=== PATIENT | male | born 1940 | race Caucasian/White ===

== ENCOUNTER 2016-04-05 14:58 | Inpatient (IN) ==
[2016-04-05] MEDS ORDERED: *HR* HYDROmorphone (PF) 1 MG/ML SYRINGE IV ONE (15:43)
[2016-04-05] MEDS ORDERED: Ondansetron 4 MG/2 ML VIAL IVP ONE ×2 (15:43→18:43)
--- NOTE | 2016-04-05 15:49 | Emergency Department Note ---
Disposition Clinical Impression: Intractable low back pain, Radiculopathy of lumbar region Spinal stenosis Qualifiers: Spinal region: lumbar Qualified Code(s): M48.06 - Spinal stenosis, lumbar region Disposition: Admitted As Inpatient Condition: Good Referrals: Colten Costello DO [Primary Care Provider] - Forms: ED Satisfaction Letter Back Pain HPI - General Chief Complaint: ED Back Pain/Injury Stated Complaint: back/leg pain s/p fall yesterday Time Seen by Provider: 04/05/16 15:24 Source: patient Limitations: no limitations Nursing Notes Reviewed: Yes Vital Signs Reviewed: Yes - History of Present Illness HPI Narrative: Is a 75-year-old male was here for low back pain and radicular symptoms on the left. He fell about 10-12 days ago was seen in the ER a CT scan that was negative for compression fracture he follow up with his PCP today and some abdominal for further evaluation. The patient had severe pain at home he basically has been bedridden normally is very active and performs a lot of activities outdoors. He is difficulty walking due to pain is been using a walker. Most movement causes low back pain with radiation to the left groin Pt Subjective Complaint: back pain (10) Duration: constant Similar Symptoms Previously: Yes Location: lumbar spine Pain Severity: severe Quality: stabbing Radiation: left leg Improves with: immobilization Worsens with: movement Associated symptoms: Reports: denies other symptoms - Related Data Previous Rx's Medication Instructions Recorded Hydrocodone/Acetaminophen [Hitchins 1 tab PO Q4H PRN #15 tab 03/27/16 5-325 Tablet] Naproxen [Naprosyn] 500 mg PO BID #10 tablet 03/27/16 Orphenadrine [Norflex] 100 mg PO BID #14 tablet.er 03/27/16 PredniSONE 60 mg PO DAILY #15 tablet 03/27/16 Allergies Allergy/AdvReac Type Severity Reaction Status Date / Time No Known Allergies Allergy Verified 03/27/16 11:29 All systems ED: reviewed and negative except as stated. Constitutional: Denies: fever, chills Gastrointestinal: Denies: abdominal pain, nausea, vomiting Past Medical History - Past Medical History Medical history: Reports: hyperlipidemia Surgical history: Reports: cancer surgery, herniorrhaphy, other Psychiatric history: Reports: no psych history - Social History Smoking Status: Never smoker Smokeless Tobacco Status: No Alcohol use: Reports: none Drug use: Reports: none Physical Exam - General Limitations: no limitations General appearance: alert - Head Head exam: atraumatic, normocephalic, normal inspection - Eye Eye exam: Present: normal appearance, PERRL, EOMI - Expanded Eye Exam Pupils: Left: reactive - ENT ENT exam: normal exam, normal oropharynx, mucous membranes moist - Expanded ENT Exam External ear exam: Present: normal external inspection Mouth exam: Present: normal external inspection Teeth exam: Present: normal inspection Throat exam: Present: normal inspection - Neck Neck exam: Present: normal inspection, full ROM, trachea midline - Chest Chest inspection: Present: normal inspection, symmetric chest wall rise - Respiratory Respiratory exam: Present: normal lung sounds bilaterally - Cardiovascular Cardiovascular exam: Present: regular rate, normal rhythm, normal heart sounds - Abdominal Exam Abdominal exam: Present: soft, Non-Tender. Absent: tenderness, distention, guarding, rebound, rigidity - Extremities Exam Extremities exam: Present: normal inspection, full ROM. Absent: tenderness, pedal edema - Expanded Upper Extremity Exam Shoulder exam: Present: normal inspection, full ROM Arm exam: Present: normal inspection, full ROM Elbow exam: Present: normal inspection, full ROM Forearm/Wrist exam: Present: normal inspection, full ROM Hand exam: Present: normal inspection, full ROM Vascular exam: Normal: capillary refill, radial pulse - Expanded Lower Extremity Exam Hip/Pelvis exam: Present: normal inspection, full ROM Upper leg exam: Present: normal inspection, full ROM Knee exam: Present: normal inspection, full ROM Lower leg exam: Present: normal inspection, full ROM Ankle exam: Present: normal inspection, full ROM Foot/toe exam: Present: normal inspection, full ROM Neurovascular/Tendon exam: Absent: motor deficit, sensory deficit, tendon deficit - Back Exam Back exam: Present: normal inspection, tenderness (Mild diffuse lower lumbar tenderness patient has pain with flexion and extension of the spine and any type of movement. ) - Neurological Exam Neurological exam: Present: alert, oriented X3 - Expanded Neurological Exam Patient oriented to: Present: person, place, time Coma Scale Eye Opening: Spontaneous Coma Scale Motor Response: Obeys Commands Coma Scale Verbal Response: Oriented Coma Scale Total: 15 - Psychiatric Psychiatric exam: Present: normal affect, normal mood - Skin Skin exam: Present: warm, dry, intact, normal color Course Vital Signs Temperature 98.0 F 04/05/16 15:17 Pulse Rate 89 04/05/16 15:17 Respiratory Rate 24 04/05/16 15:17 Blood Pressure 130/81 04/05/16 15:17 O2 Sat by Pulse Oximetry 97 04/05/16 15:17 Temperature 98.0 F 04/05/16 15:17 Pulse Rate 81 04/05/16 17:55 Respiratory Rate 16 04/05/16 17:55 Blood Pressure 158/106 04/05/16 17:55 O2 Sat by Pulse Oximetry 97 04/05/16 17:55 Oxygen Delivery Oxygen Delivery Nasal Cannula Back Pain/Injury - MDM Narrative Medical decision making narrative: I consult Dr. Lai he will see the patient in the morning to decide on further management plans - Differential Diagnosis Differential Diagnosis: Likely: lumbar radiculopathy, strain of lumbar region, thoracic back pain - Lab Data Result diagrams: 04/05/16 15:56 04/05/16 15:56 Lab Results 04/05/16 04/05/16 04/05/16 Range/Units 15:56 15:56 17:45 WBC 10.5 (4.3-11.1) K/mcL RBC 6.17 H (4.19-5.50) M/mcL Hgb 18.5 H (12.9-16.9) g/dL Hct 52.8 H (37.5-50.1) % MCV 85.6 (83.0-100.0) fL MCH 30.0 (28.0-33.3) pg MCHC 35.0 (31.6-35.5) g/dL RDW 13.0 (11.5-14.5) % Plt Count 207 (140-400) K/mcL MPV 9.2 L (9.4-12.4) fL Immature Gran % 0.4 (0-4) % Seg Neutrophils % 72.1 % Lymphocytes % 16.9 % Monocytes % 7.7 % Eosinophils % 2.3 % Basophils % 0.6 % Neutrophils # 7.6 (1.6-8.9) K/mcL Lymphocytes # 1.8 (0.6-4.6) K/mcL Monocytes # 0.8 (0.0-1.3) K/mcL Eosinophils # 0.2 (0.0-0.6) K/mcL Basophils # 0.1 (0.0-0.2) K/mcL Sodium 139 (136-145) mEq/L Potassium 4.0 (3.5-4.5) mEq/L Chloride 105 (98-109) mEq/L Carbon Dioxide 22 (19-29) mEq/L BUN 16 (8-26) mg/dL Creatinine 1.12 (0.72-1.25) mg/dL Est GFR ( Amer) > 60 (> 60) Est GFR (Non-Af Amer) > 60 (> 60) BUN/Creatinine Ratio 14 (6-26) Glucose 97 (70-99) mg/dL Calculated Osmolality 289 (280-300) Calcium 9.5 (8.6-10.8) mg/dL Total Bilirubin 1.8 H (0.2-1.2) mg/dL Direct Bilirubin 0.5 (0.0-0.5) mg/dL Indirect Bilirubin 1.3 H (0.0-1.2) mg/dL AST 23 (5-34) Units/L ALT 43 (0-55) Units/L Alkaline Phosphatase 80 (38-126) Units/L Serum Total Protein 7.7 (6.0-8.3) g/dL Albumin 4.0 (3.5-5.0) g/dL Globulin 3.7 H (2.4-3.5) g/dL Albumin/Globulin Ratio 1.1 (1.1-2.2) Urine Color Yellow (Yellow) Urine Clarity Clear (Clear) Urine pH 7.0 (5.0-8.0) pH Units Ur Specific [place] 1.010 (1.010-1.025) Urine Protein Negative (Neg-Trace) mg/dL Urine Glucose (UA) Normal (Normal) mg/dL Urine Ketones Negative (Negative) mg/dL Urine Blood Negative (Negative) Urine Nitrite Negative (Negative) Urine Bilirubin Negative (Negative) Urine Urobilinogen Normal (Normal) mg/dL Ur Leukocyte Esterase Negative (Negative) Ur Culture Indicated? NO (NO)
[2016-04-05 16:35] LABS: Basophils # 0.1 K/mcL (0.0-0.2); Basophils % 0.6 %; Eosinophils # 0.2 K/mcL (0.0-0.6); Eosinophils % 2.3 %; Hematocrit 52.8 % (37.5-50.1); Hemoglobin 18.5 g/dL (12.9-16.9); Immature Granulocytes % 0.4 % (0-4); Lymphocytes # 1.8 K/mcL (0.6-4.6); Lymphocytes % 16.9 %; Mean Corpuscular Volume 85.6 fL (83.0-100.0); Mean Platelet Volume 9.2 fL (9.4-12.4); Monocytes # 0.8 K/mcL (0.0-1.3); Monocytes % 7.7 %; Neutrophils # 7.6 K/mcL (1.6-8.9); Platelet Count 207 K/mcL (140-400); Red Blood Count 6.17 M/mcL (4.19-5.50); Segmented Neutrophils % 72.1 %
[2016-04-05 16:54] LABS: Alanine Aminotransferase 43 Units/L (0-55); Albumin/Globulin Ratio 1.1 (1.1-2.2); Alkaline Phosphatase 80 Units/L (38-126); Aspartate Amino Transferase 23 Units/L (5-34); BUN/Creatinine Ratio 14 (6-26); Bilirubin,Direct 0.5 mg/dL (0.0-0.5); Bilirubin,Indirect 1.3 mg/dL (0.0-1.2); Bilirubin,Total 1.8 mg/dL (0.2-1.2); Blood Urea Nitrogen 16 mg/dL (8-26); Calcium 9.5 mg/dL (8.6-10.8); Carbon Dioxide 22 mEq/L (19-29); Chloride 105 mEq/L (98-109); Globulin 3.7 g/dL (2.4-3.5); Glucose 97 mg/dL (70-99); Osmolality,Calculated 289 (280-300); Sodium 139 mEq/L (136-145); Total Protein 7.7 g/dL (6.0-8.3); eGFR For African Americans > 60 (> 60); eGFR For Non-African Americans > 60 (> 60)
[2016-04-05 18:01] LABS: Bilirubin,Urine Negative (Negative); Blood,Urine Negative (Negative); Clarity,Urine Clear (Clear); Color,Urine Yellow (Yellow); Glucose,Urine (UA) Normal (Normal); Ketones,Urine Negative (Negative); Leukocyte Esterase,Urine Negative (Negative); Nitrite,Urine Negative (Negative); Protein,Urine Negative (Neg-Trace); Urobilinogen,Urine Normal (Normal)
[2016-04-05] MEDS ORDERED: Ketorolac 30 MG/ML VIAL IVP ONE (18:42)
[2016-04-05] MEDS ORDERED: *HR* HYDROmorphone (PF) 1 MG/ML SYRINGE IVP ONE (18:43)
--- NOTE | 2016-04-05 20:12 | Internal Med History&Physical ---
<Marshall Damon - Last Filed: 04/06/16 00:05> Date of Encounter: 04/06/16 Time of Encounter: 20:10 Assessment and Plan (1) Intractable low back pain Current visit: Yes Status: Acute Acute on chronic LBP with new onset radiculopathy in L leg x 1.5 weeks ago s/p back strain while doing housework. No loss of bowel or bladder control. Lumbar MRI showed severe spinal stenosis L2-L3, L3-L4. Severe left neural forminal stenosis at L5-S1. Pain improved with Dilaudid, will continue to manage. Consider steroid injection. Dr. Lai, ortho, consulted. (2) Radiculopathy of lumbar region Current visit: Yes Status: Acute See plan above. (3) Spinal stenosis Current visit: Yes Status: Acute See plan above. Qualifiers: Spinal region: lumbar Qualified Code(s): M48.06 - Spinal stenosis, lumbar region (4) Elevated blood pressure reading Current visit: Yes Status: Acute No history of HTN, patient states they have been running high since the pain started. Plan to manage acute pain. Monitor BP, will start prn hydralazine. (5) HLD (hyperlipidemia) Current visit: Yes Status: Chronic Continue home medications. Qualifiers: Hyperlipidemia type: mixed hyperlipidemia Qualified Code(s): E78.2 - Mixed hyperlipidemia (6) Gilbert's syndrome Current visit: Yes Status: Chronic Mildly elevated total Bilirubin 1.8 and indirect 1.3. (7) Lung fibrosis Current visit: Yes Status: Chronic Past history of abestosis exposure, associated fibrosis, emphysema. No tobacco history. Patient on supplemental oxygen at home, baseline of 2 L, up to 4L with activity. Start alisha. Internal Medicine - H&P: HPI Chief complaint: LBP Admitted From: Emergency Dept Plans for Post Hospital Care: Transfer Inp Rehab Fac History of present illness: Mr. Cespedes is a 75 year old male that presented to the ED for LBP for 1.5 weeks with radiating pain through low back, abdomen, L groin, and down his L leg. Patient notes history of "slipped disc" in 1979 that involved treatment with traction and a 1 week hospital stay in [place]. Since then he states his back may get irritated from time to time, but does not inhibit his daily activities and nothing comparable to pain now. Patient states at its worst, pain is a 10/10 in severity Patient states approx 10 days ago he was throwing a bucket of lloyd into the garden and felt his give out. Since this time patient states he has had sharp shooting pain in his back to his left ankle. Patient notes the pain is so severe it is affecting his ability to walk, so he has been using a walker recently, however, despite the use of the walker he states that he fell yesterday when his L leg gave out on him. Patient notes numbness in the left leg compared to the right and that the leg is painful to touch, worse over the tibia. Patient also notes recent elevated BP since the start of the back and leg pain. Patient denies any syncope, dizziness, chest pain, abdominal pain , or swelling. Past Med Surg Social Fam HX - Past Medical History Medical history: hyperlipidemia Psychiatric history: no psych history - Past Surgical History Surgical History: cancer surgery, herniorrhaphy, other - Social History Smoking Status: Never smoker Smokeless Tobacco Status: No Alcohol use: none Drug use: none - Family History Brother Hx Family Cancer: Yes (skin CA) Mother Hx Family Cancer: Yes (gastric) Internal Medicine - H&P: Meds Ascorbate Calcium [Vitamin C] 500 mg PO DAILY 04/05/16 [History] Atorvastatin [Lipitor] 10 mg PO HS 04/05/16 [History] Cetirizine HCl [All Day Allergy] 10 mg PO DAILY 04/05/16 [History] Cholecalciferol (D-3) [Vitamin D] 5,000 unit PO DAILY 04/05/16 [History] Cyanocobalamin (Vitamin B-12) [Vitamin B12] 1,000 mcg PO DAILY 04/05/16 [History ] [place]-3S/Dha/Epa/Fish Oil [Fish Oil 1,200 mg Softgel] 1 each PO DAILY 04/05/16 [ History] Polyethylene Glycol 3350 [MiraLAX] 17 gm PO DAILY 04/05/16 [History] Tramadol HCl [Ultram] 50 mg PO TID PRN 04/05/16 [History] Allergies No Known Allergies Allergy (Verified 03/27/16 11:29) All Systems PM: A 10-system review of systems was performed and is negative for pertinent findings except as documented above in the HPI. - Constitutional Constitutional: falls, weakness, no fatigue - EENT Eyes: no loss of vision - Cardiovascular Cardiovascular ROS IM: dyspnea, no chest pain, no syncope - Respiratory Respiratory: dyspnea - Gastrointestinal Gastrointestinal: no abdominal pain - Genitourinary Genitourinary ROS male: other (L groin pain) - Musculoskeletal Musculoskeletal ROS IM: back pain, limited range of motion, numbness, tingling - Integumentary Integumentary IM: no erythema - Neurological Neurological ROS: numbness, radicular pain - Hematologic/Lymphatic Hematologic/Lymphatic: no easy bruising - Constitutional Vitals: Temp Pulse Resp BP Pulse Ox 98.0 F 81 16 158/109 97 04/05/16 15:17 04/05/16 17:55 04/05/16 19:08 04/05/16 19:08 04/05/16 17:55 General appearance: Present: cooperative, mild distress, A&O X 3, pleasant, answers questions appropriately - Head Head exam: Present: atraumatic, normocephalic - Eye Eye exam: Present: EOMI, conjuntiva pink, sclera anicteric Pupils: Present: miosis - Neck Neck exam general surgery: Present: supple, trachea midline - Respiratory Respiratory exam: Present: CTAB. Absent: accessory muscle use, rales, rhonchi, wheezes - Cardiovascular Cardiovascular exam: Present: RRR, +S1, +S2. Absent: diastolic murmur, gallop, rubs, systolic murmur - GI/Abdominal GI/Abdominal exam: Present: normal bowel sounds, soft, no peritoneal signs. Absent: distended, tenderness - Extremities Exam Extremities exam: Present: tenderness (of left leg, worse over tibia), warm. Absent: cyanotic, pedal edema Additional comments: Patient states pain and numbness in left leg upon palpation. Denies any burning sensation at this time. Patient unable to lift leg off the bed with straight leg raise due to pain. - Neurological Exam Neurological exam: Present: alert, oriented X3, no focal deficits, strengths equal and symetr throughout (UE 5/5 bilaterally, R LE 5/5, unable to ascertain L LE strength due to LBP.). Absent: facial droop, speech deficit - Skin Skin exam: Present: dry, intact Internal Med - H&P Results - Labs CBC & Chem 7: 04/05/16 15:56 04/05/16 15:56 <Mirna Velasquez - Last Filed: 04/06/16 06:03> Date of Encounter: 04/05/16 Time of Encounter: 05:00 Internal Medicine - H&P: HPI History of present illness: Mr. Cespedes is a 75 year old male All Systems PM: A 10-system review of systems was performed and is negative for pertinent findings except as documented above in the HPI. - Constitutional Vitals: Temp Pulse Resp BP Pulse Ox 98.0 F 70 16 143/82 96 04/06/16 04:36 04/06/16 04:36 04/06/16 04:36 04/06/16 04:36 04/06/16 04:36 Internal Med - H&P Results - Labs CBC & Chem 7: 04/05/16 15:56 04/05/16 15:56 - Attending Attestation Patient independently seen and examined with family present at bedside. Pt reports of excruciating pain which has worsened since his fall and not adequately relieved with the current pain medication regimen. He denies any urinary incontinence, no saddle anesthesia reported. Patient is to be evaluated by Dr. Lai in am. Will adjust pain control. Increase Dilaudid to 1mg IV q4h and add Toradol 30mg IV q6h prn. I have discussed the case with the resident physician, and agree with her listed findings, assessment, and plan.
[2016-04-05] MEDS ORDERED: Naloxone 0.4 MG/ML INJ IVP PRN (20:59)
[2016-04-05] MEDS ORDERED: Ondansetron 4 MG/2 ML VIAL IVP PRN (20:59)
[2016-04-05] MEDS ORDERED: *HR* HYDROmorphone (PF) 1 MG/ML SYRINGE IVP PRN (22:00)
[2016-04-06 05:03] LABS: INR 1.1; Prothrombin Time 11.8 Seconds (9.4-12.1)
[2016-04-06 05:06] LABS: Activated Partial Thrombo Time 31.1 Seconds (26.0-36.0)
[2016-04-06] MEDS: *HR* HYDROmorphone (PF) 1 MG/ML SYRINGE IVP PRN ×3 (05:07→21:46)
[2016-04-06] MEDS: *HR* Heparin 5,000 UNIT/ML VIAL SQ SCH ×2 (05:07→17:10)
[2016-04-06] MEDS: Pantoprazole 40 MG VIAL IVP SCH (07:53)
[2016-04-06] MEDS: Ketorolac 30 MG/ML VIAL IVP PRN ×2 (07:53→16:21)
--- NOTE | 2016-04-06 10:00 | Electrocardiograph Report ---
[facility] Test Date: 2016-04-06 Pat Name: Mckinley Cespedes Department: 114 Room: [facility] Gender: M Patient Account Analyst: SYLVESTER : 1940 Requested By: Camelia Christianson Order Number: [id number] Reading MD: Alejandra Gaspar Measurements Intervals [place] Rate: 65 P: 27 FL: 163 QRS: 3 QRSD: 100 T: 46 QT: 411 QTc: 422 Interpretive Statements SINUS RHYTHM Electronically Signed On 04-06-16 09:58:05 EST by Alejandra Gaspar
--- NOTE | 2016-04-06 16:23 | Internal Med Progress Note ---
Date of Encounter: 04/06/16 Time of Encounter: 09:00 - Assessment and plan (1) Spinal stenosis Current Visit: Yes Status: Acute Assessment and plan: We will give pain medication. Spinal surgery is on case and plan for surgery. Patient is at high risk because of his spinal stenosis needs surgical intervention. Qualifiers: Spinal region: lumbar Qualified Code(s): M48.06 - Spinal stenosis, lumbar region (2) Radiculopathy of lumbar region Current Visit: Yes Status: Acute Assessment and plan: Caused by spinal stenosis. Plan for surgery. 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 Mild elevated bilirubin (4) Lung fibrosis Current Visit: Yes Status: Chronic Assessment and plan: Patient has history of abestosis exposure, need home oxygen. We will order chest x-ray. Continue oxygen therapy. (5) DVT prophylaxis Current Visit: Yes Status: Acute Assessment and plan: Heparin and EPCD - Time Spent With Patient Greater than 35 minutes - Subjective Interval history: Patient is a 75-year-old male admitted for low back pain radiated to left leg, L -spine stenosis. Past medical history is significant for hyperlipidemia and chronic lung disease. Patient was seen and examined. He has no shortness of breath, no fever, vitals are stable. Complaint of low back pain and left leg pain. Denies urinary or fecal incontinence. Spinal surgery Dr. Gandhi is on case. Plan for surgery on Saturday. - Constitutional Vitals: Temp Pulse Resp BP Pulse Ox 97.6 F 70 18 144/83 97 04/06/16 10:58 04/06/16 10:58 04/06/16 10:58 04/06/16 10:58 04/06/16 10:58 General appearance: Present: cooperative, mild distress, A&O X 3, pleasant, answers questions appropriately - Head Head exam: Present: atraumatic, normocephalic - Eye Eye exam: Present: PERRL, conjuntiva pink, sclera anicteric Pupils: Present: PERRL - Neck Neck exam general surgery: Present: supple, trachea midline. Absent: lymphadenopathy - Respiratory Respiratory exam: Present: CTAB. Absent: accessory muscle use, rales, rhonchi, wheezes - Cardiovascular Cardiovascular exam: Present: RRR, +S1, +S2. Absent: diastolic murmur, gallop, rubs, systolic murmur - GI/Abdominal GI/Abdominal exam: Present: normal bowel sounds, soft, no peritoneal signs. Absent: distended, tenderness - Extremities Exam Extremities exam: Present: warm, radial pulses palpable and symetrical. Absent : calf tenderness, cyanotic, pedal edema - Neurological Exam Neurological exam: Present: CN II-XII intact, oriented X3, no focal deficits. Absent: pronater drift, facial droop, speech deficit - Skin Skin exam: Present: dry, intact Internal Medicine: Result - Labs CBC & Chem 7: 04/05/16 15:56 04/05/16 15:56 - ABG Interpretation ABG results: PT/INR, D-dimer PT 11.8 Seconds (9.4-12.1) 04/06/16 03:47 Consult Discharge Plan - Plan Referrals: Colten Costello DO [Primary Care Provider] -
[2016-04-07] MEDS: Ketorolac 30 MG/ML VIAL IVP PRN ×4 (02:47→23:44)
[2016-04-07] MEDS: *HR* HYDROmorphone (PF) 1 MG/ML SYRINGE IVP PRN ×3 (06:14→19:44)
[2016-04-07] MEDS: *HR* Heparin 5,000 UNIT/ML VIAL SQ SCH ×2 (06:15→16:28)
[2016-04-07] MEDS: Pantoprazole 40 MG VIAL IVP SCH (08:11)
--- NOTE | 2016-04-07 17:10 | Internal Med Progress Note ---
Date of Encounter: 04/07/16 Time of Encounter: 10:00 - Assessment and plan (1) Spinal stenosis Current Visit: Yes Status: Acute Assessment and plan: We will give pain medication. Spinal surgery is on case and plan for surgery. Patient is at high risk because of his spinal stenosis needs surgical intervention. Qualifiers: Spinal region: lumbar Qualified Code(s): M48.06 - Spinal stenosis, lumbar region (2) Radiculopathy of lumbar region Current Visit: Yes Status: Acute Assessment and plan: Caused by spinal stenosis. Plan for surgery. 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 Mild elevated bilirubin (4) Lung fibrosis Current Visit: Yes Status: Chronic Assessment and plan: Patient has history of abestosis exposure, need home oxygen. Chest x-ray shows no acute changes. Continue oxygen therapy. (5) DVT prophylaxis Current Visit: Yes Status: Acute Assessment and plan: Heparin and EPCD - Time Spent With Patient Greater than 35 minutes - Subjective Interval history: Patient is a 75-year-old male admitted for low back pain radiated to left leg, L -spine stenosis. Past medical history is significant for hyperlipidemia and chronic lung disease. Patient was seen and examined. He has no shortness of breath, no fever, vitals are stable. Complaint of low back pain and left leg pain. Denies urinary or fecal incontinence. Spinal surgery Dr. Gandhi is on case. Plan for surgery on Saturday. - Constitutional Vitals: Temp Pulse Resp BP Pulse Ox 97.9 F 64 16 134/81 98 04/07/16 14:39 04/07/16 14:39 04/07/16 14:39 04/07/16 14:39 04/07/16 14:39 General appearance: Present: cooperative, mild distress, A&O X 3, pleasant, answers questions appropriately - Head Head exam: Present: atraumatic, normocephalic - Eye Eye exam: Present: PERRL, conjuntiva pink, sclera anicteric Pupils: Present: PERRL - Neck Neck exam general surgery: Present: supple, trachea midline. Absent: lymphadenopathy - Respiratory Respiratory exam: Present: CTAB. Absent: accessory muscle use, rales, rhonchi, wheezes - Cardiovascular Cardiovascular exam: Present: RRR, +S1, +S2. Absent: diastolic murmur, gallop, rubs, systolic murmur - GI/Abdominal GI/Abdominal exam: Present: normal bowel sounds, soft, no peritoneal signs. Absent: distended, tenderness - Extremities Exam Extremities exam: Present: warm, radial pulses palpable and symetrical. Absent : calf tenderness, cyanotic, pedal edema - Neurological Exam Neurological exam: Present: CN II-XII intact, oriented X3, no focal deficits. Absent: pronater drift, facial droop, speech deficit - Skin Skin exam: Present: dry, intact Internal Medicine: Result - Labs CBC & Chem 7: 04/05/16 15:56 04/05/16 15:56 - ABG Interpretation ABG results: PT/INR, D-dimer PT 11.8 Seconds (9.4-12.1) 04/06/16 03:47 - Impressions Impressions Chest X-Ray 04/06/16 00:00 IMPRESSION: No acute pulmonary process. D/ / Loi Ortiz MD / Loi Ortiz MD Interpreting Provider: Loi Ortiz MD Consult Discharge Plan - Plan Referrals: Colten Costello DO [Primary Care Provider] -
[2016-04-08] MEDS: *HR* Heparin 5,000 UNIT/ML VIAL SQ SCH ×2 (05:55→16:28)
[2016-04-08] MEDS: *HR* HYDROmorphone (PF) 1 MG/ML SYRINGE IVP PRN ×2 (08:22→14:37)
[2016-04-08] MEDS: Pantoprazole 40 MG VIAL IVP SCH (08:22)
[2016-04-08] MEDS ORDERED: ceFAZolin 2,000 MG in D5% in Water (Mini-Bag+) 100 ML IVPB ONE (15:56)
--- NOTE | 2016-04-08 16:36 | Internal Med Progress Note ---
Date of Encounter: 04/08/16 Time of Encounter: 09:00 - Assessment and plan (1) Spinal stenosis Current Visit: Yes Status: Acute Assessment and plan: We will give pain medication. Spinal surgery is on case and plan for surgery. Qualifiers: Spinal region: lumbar Qualified Code(s): M48.06 - Spinal stenosis, lumbar region (2) Radiculopathy of lumbar region Current Visit: Yes Status: Acute Assessment and plan: Caused by spinal stenosis. Plan for surgery. 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 Mild elevated bilirubin (4) Lung fibrosis Current Visit: Yes Status: Chronic Assessment and plan: Patient has history of abestosis exposure, need home oxygen. Chest x-ray shows no acute changes. Continue oxygen therapy. Closely monitor perioperatively. (5) DVT prophylaxis Current Visit: Yes Status: Acute Assessment and plan: Heparin and EPCD - Time Spent With Patient 25 - 35 minutes - Subjective Interval history: Patient is a 75-year-old male admitted for low back pain radiated to left leg, L -spine stenosis. Past medical history is significant for hyperlipidemia and chronic lung disease. Patient was seen and examined. He has no shortness of breath, no fever, vitals are stable. Complaint of low back pain and left leg pain. Denies urinary or fecal incontinence. Spinal surgery Dr. Gandhi is on case. Plan for surgery on Saturday. Lab, EKG, and CXR reviewed. Pt has chronic lung fibrosis which make him having mild to moderate risk for surgery, need close monitoring perioperatively. Pt has no acute cardiopulmonary condition now. He is medically optimized for surgery. - Constitutional Vitals: Temp Pulse Resp BP Pulse Ox 97.5 F L 63 16 139/52 97 04/08/16 15:09 04/08/16 15:09 04/08/16 15:09 04/08/16 15:09 04/08/16 15:09 General appearance: Present: cooperative, mild distress, A&O X 3, pleasant, answers questions appropriately - Head Head exam: Present: atraumatic, normocephalic - Eye Eye exam: Present: PERRL, conjuntiva pink, sclera anicteric Pupils: Present: PERRL - Neck Neck exam general surgery: Present: supple, trachea midline. Absent: lymphadenopathy - Respiratory Respiratory exam: Present: CTAB. Absent: accessory muscle use, rales, rhonchi, wheezes - Cardiovascular Cardiovascular exam: Present: RRR, +S1, +S2. Absent: diastolic murmur, gallop, rubs, systolic murmur - GI/Abdominal GI/Abdominal exam: Present: normal bowel sounds, soft, no peritoneal signs. Absent: distended, tenderness - Extremities Exam Extremities exam: Present: warm, radial pulses palpable and symetrical. Absent : calf tenderness, cyanotic, pedal edema - Neurological Exam Neurological exam: Present: CN II-XII intact, oriented X3, no focal deficits. Absent: pronater drift, facial droop, speech deficit - Skin Skin exam: Present: dry, intact Internal Medicine: Result - Labs CBC & Chem 7: 04/05/16 15:56 04/05/16 15:56 - ABG Interpretation ABG results: PT/INR, D-dimer PT 11.8 Seconds (9.4-12.1) 04/06/16 03:47 - VTE Documentation of Mechanical Device: Intermittent pneumatic compression device Consult Discharge Plan - Plan Referrals: Colten Costello DO [Primary Care Provider] -
[2016-04-08] MEDS: Ketorolac 30 MG/ML VIAL IVP PRN (20:14)
[2016-04-09] MEDS: Ketorolac 30 MG/ML VIAL IVP PRN (02:21)
[2016-04-09 05:29] LABS: Basophils % 0.4 %; Eosinophils # 0.2 K/mcL (0.0-0.6); Eosinophils % 3.3 %; Hematocrit 45.4 % (37.5-50.1); Immature Granulocytes % 0.3 % (0-4); Lymphocytes # 1.6 K/mcL (0.6-4.6); Lymphocytes % 21.6 %; Mean Corpuscular HGB Conc 33.9 g/dL (31.6-35.5); Mean Corpuscular Hemoglobin 29.3 pg (28.0-33.3); Mean Corpuscular Volume 86.5 fL (83.0-100.0); Mean Platelet Volume 9.2 fL (9.4-12.4); Monocytes # 0.5 K/mcL (0.0-1.3); Monocytes % 6.4 %; Platelet Count 159 K/mcL (140-400); Red Blood Count 5.25 M/mcL (4.19-5.50); Red Cell Distribution Width 12.7 % (11.5-14.5)
[2016-04-09 05:47] LABS: BUN/Creatinine Ratio 16 (6-26); Blood Urea Nitrogen 19 mg/dL (8-26); Calcium 8.8 mg/dL (8.6-10.8); Carbon Dioxide 24 mEq/L (19-29); Chloride 108 mEq/L (98-109); Glucose 111 mg/dL (70-99); Osmolality,Calculated 291 (280-300); Potassium 4.3 mEq/L (3.5-4.5); Sodium 139 mEq/L (136-145); eGFR For African Americans > 60 (> 60); eGFR For Non-African Americans 59 (> 60)
[2016-04-09 05:49] LABS: Hemoglobin 15.4 g/dL (12.9-16.9)
[2016-04-09] MEDS: *HR* Heparin 5,000 UNIT/ML VIAL SQ SCH ×2 (06:03→16:32)
--- NOTE | 2016-04-09 07:43 | Spinal Consult Note ---
Date of Encounter: 04/06/16 Time of Encounter: 16:05 Assessment and Plan (1) Lumbar stenosis with neurogenic claudication Current Visit: Yes Status: Chronic On physical exam he is afebrile vital signs are stable. He is in bed in obvious distress when he moves his back. He has some weakness in the left quad and dorsiflexors which is 4 on a motor scale. His hips move symmetrically. He has no clonus. He has limitation with forward flexion and extension of the lumbar spine. MRI of the lumbar spine reveals severe stenosis L2-L4 and at least moderate stenosis L4-5. There are multilevel degenerative changes present. Impression: 1) severe lumbar stenosis 2) lumbar radiculopathy 3) focal motor deficit Plan: Due to his intractable pain and concerning weakness as well as significant functional decline find it reasonable to consider surgery in the form of a laminectomy L2-L5. After medical optimization and clearance measures were able to proceed with the decompression. Risk and benefits were discussed and the patient would like to proceed. (2) Radiculopathy of lumbar region Current Visit: Yes Status: Chronic History of Present Illness Chief complaint: severe back and leg pain HPI: Mr. Cespedes is a 75 year old male Complains of a one-week history of worsening back pain, radicular symptoms, and weakness of the lower extremities interfering with his ability to ambulate. He is essentially been bed ridden for approximately 10 days. 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 He has had episodes of back and neurogenic claudication symptoms in the past but this is become quite intractable recently. He denies any bowel or bladder symptomatology. Denies fevers or chills. Past Med Surg Social Fam HX - Past Medical History Medical history: hyperlipidemia Psychiatric history: no psych history - Past Surgical History Surgical History: cancer surgery, herniorrhaphy, other - Social History Smoking Status: Never smoker Smokeless Tobacco Status: No Alcohol use: none Drug use: none - Family History Brother Hx Family Cancer: Yes (skin CA) Mother Hx Family Cancer: Yes (gastric) Medications and Allergies Ascorbate Calcium [Vitamin C] 500 mg PO DAILY 04/05/16 [History] Atorvastatin [Lipitor] 10 mg PO HS 04/05/16 [History] Cetirizine HCl [All Day Allergy] 10 mg PO DAILY 04/05/16 [History] Cholecalciferol (D-3) [Vitamin D] 5,000 unit PO DAILY 04/05/16 [History] Cyanocobalamin (Vitamin B-12) [Vitamin B12] 1,000 mcg PO DAILY 04/05/16 [History ] Driver-3S/Dha/Epa/Fish Oil [Fish Oil 1,200 mg Softgel] 1 each PO DAILY 04/05/16 [ History] Polyethylene Glycol 3350 [MiraLAX] 17 gm PO DAILY 04/05/16 [History] Tramadol HCl [Ultram] 50 mg PO TID PRN 04/05/16 [History] Allergies No Known Allergies Allergy (Verified 03/27/16 11:29) Results - Labs Result Diagrams: 04/09/16 05:15 04/09/16 05:15 Labs: Abnormal lab results MPV 9.2 fL (9.4-12.4) L 04/09/16 05:15 Est GFR (Non-Af Amer) 59 (> 60) L 04/09/16 05:15 Glucose 111 mg/dL (70-99) H 04/09/16 05:15 Total Bilirubin 1.8 mg/dL (0.2-1.2) H 04/05/16 15:56 Indirect Bilirubin 1.3 mg/dL (0.0-1.2) H 04/05/16 15:56 Globulin 3.7 g/dL (2.4-3.5) H 04/05/16 15:56 H & H 04/09/16 Range/Units 05:15 Hgb 15.4 D (12.9-16.9) g/dL Hct 45.4 (37.5-50.1) % All other labs normal. Consult Discharge Plan - Plan Referrals: Colten Costello DO [Primary Care Provider] -
[2016-04-09] MEDS: Pantoprazole 40 MG VIAL IVP SCH (07:56)
[2016-04-09] MEDS: *HR* HYDROmorphone (PF) 1 MG/ML SYRINGE IVP PRN ×3 (07:57→23:42)
[2016-04-09] MEDS ORDERED: D5% in 0.45% NACL 1,000 ML IVC SCH (10:30)
--- NOTE | 2016-04-09 14:15 | Anesthesia Evaluation PreOp ---
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: Other (Severe Lumbar stenosis, Laumbar radiculopathy w/focal motor deficit LLE) Other Medical History: Other (Trevett syndrome) Anesthesia History: No Prior Anesthetic Complications, Past Anesthesia (Skin Cancer surgery, Herniorraphy, Hemorrhoidectomy, TURP) Alcohol Use: none Drug use: none Medications and Allergies Ascorbate Calcium [Vitamin C] 500 mg PO DAILY 04/05/16 [History] Atorvastatin [Lipitor] 10 mg PO HS 04/05/16 [History] Cetirizine HCl [All Day Allergy] 10 mg PO DAILY 04/05/16 [History] Cholecalciferol (D-3) [Vitamin D] 5,000 unit PO DAILY 04/05/16 [History] Cyanocobalamin (Vitamin B-12) [Vitamin B12] 1,000 mcg PO DAILY 04/05/16 [History ] [place]-3S/Dha/Epa/Fish Oil [Fish Oil 1,200 mg Softgel] 1 each PO DAILY 04/05/16 [ History] Polyethylene Glycol 3350 [MiraLAX] 17 gm PO DAILY 04/05/16 [History] Tramadol HCl [Ultram] 50 mg PO TID PRN 04/05/16 [History] Allergies No Known Allergies Allergy (Verified 03/27/16 11:29) - Meds/Allergy Pre-op Review Medications Reviewed: Yes Allergies Reviewed: Yes Beta Blockers on Current Med List: No Anesthesia Results - Labs 04/09/16 05:15 04/09/16 05:15 Laboratory Tests 12/15/15 04/06/16 04/09/16 08:31 03:47 05:15 PT 11.8 INR 1.1 APTT 31.1 Est GFR (Non-Af Amer) 59 L Est Mean Plasma Glucose 114 Hemoglobin A1c 5.6 Laboratory Results WBC 7.3 K/mcL (4.3-11.1) 04/09/16 05:15 RBC 5.25 M/mcL (4.19-5.50) 04/09/16 05:15 Hgb 15.4 g/dL (12.9-16.9) D 04/09/16 05:15 Hct 45.4 % (37.5-50.1) 04/09/16 05:15 MCV 86.5 fL (83.0-100.0) 04/09/16 05:15 MCH 29.3 pg (28.0-33.3) 04/09/16 05:15 MCHC 33.9 g/dL (31.6-35.5) 04/09/16 05:15 RDW 12.7 % (11.5-14.5) 04/09/16 05:15 Plt Count 159 K/mcL (140-400) 04/09/16 05:15 MPV 9.2 fL (9.4-12.4) L 04/09/16 05:15 Immature Gran % 0.3 % (0-4) 04/09/16 05:15 Seg Neutrophils % 68.0 % 04/09/16 05:15 Lymphocytes % 21.6 % 04/09/16 05:15 Monocytes % 6.4 % 04/09/16 05:15 Eosinophils % 3.3 % 04/09/16 05:15 Basophils % 0.4 % 04/09/16 05:15 Neutrophils # 5.0 K/mcL (1.6-8.9) 04/09/16 05:15 Lymphocytes # 1.6 K/mcL (0.6-4.6) 04/09/16 05:15 Monocytes # 0.5 K/mcL (0.0-1.3) 04/09/16 05:15 Eosinophils # 0.2 K/mcL (0.0-0.6) 04/09/16 05:15 Basophils # 0.0 K/mcL (0.0-0.2) 04/09/16 05:15 PT 11.8 Seconds (9.4-12.1) 04/06/16 03:47 INR 1.1 04/06/16 03:47 APTT 31.1 Seconds (26.0-36.0) 04/06/16 03:47 Sodium 139 mEq/L (136-145) 04/09/16 05:15 Potassium 4.3 mEq/L (3.5-4.5) 04/09/16 05:15 Chloride 108 mEq/L (98-109) 04/09/16 05:15 Carbon Dioxide 24 mEq/L (19-29) 04/09/16 05:15 BUN 19 mg/dL (8-26) 04/09/16 05:15 Creatinine 1.20 mg/dL (0.72-1.25) 04/09/16 05:15 Est GFR ( Amer) > 60 (> 60) 04/09/16 05:15 Est GFR (Non-Af Amer) 59 (> 60) L 04/09/16 05:15 BUN/Creatinine Ratio 16 (6-26) 04/09/16 05:15 Glucose 111 mg/dL (70-99) H 04/09/16 05:15 Calculated Osmolality 291 (280-300) 04/09/16 05:15 Calcium 8.8 mg/dL (8.6-10.8) 04/09/16 05:15 Total Bilirubin 1.8 mg/dL (0.2-1.2) H 04/05/16 15:56 Direct Bilirubin 0.5 mg/dL (0.0-0.5) 04/05/16 15:56 Indirect Bilirubin 1.3 mg/dL (0.0-1.2) H 04/05/16 15:56 AST 23 Units/L (5-34) 04/05/16 15:56 ALT 43 Units/L (0-55) 04/05/16 15:56 Alkaline Phosphatase 80 Units/L (38-126) 04/05/16 15:56 Serum Total Protein 7.7 g/dL (6.0-8.3) 04/05/16 15:56 Albumin 4.0 g/dL (3.5-5.0) 04/05/16 15:56 Globulin 3.7 g/dL (2.4-3.5) H 04/05/16 15:56 Albumin/Globulin Ratio 1.1 (1.1-2.2) 04/05/16 15:56 Urine Color Yellow (Yellow) 04/05/16 17:45 Urine Clarity Clear (Clear) 04/05/16 17:45 Urine pH 7.0 pH Units (5.0-8.0) 04/05/16 17:45 Ur Specific [place] 1.010 (1.010-1.025) 04/05/16 17:45 Urine Protein Negative mg/dL (Neg-Trace) 04/05/16 17:45 Urine Glucose (UA) Normal mg/dL (Normal) 04/05/16 17:45 Urine Ketones Negative mg/dL (Negative) 04/05/16 17:45 Urine Blood Negative (Negative) 04/05/16 17:45 Urine Nitrite Negative (Negative) 04/05/16 17:45 Urine Bilirubin Negative (Negative) 04/05/16 17:45 Urine Urobilinogen Normal mg/dL (Normal) 04/05/16 17:45 Ur Leukocyte Esterase Negative (Negative) 04/05/16 17:45 Ur Culture Indicated? NO (NO) 04/05/16 17:45 Impressions Foreign Body Localization X-Ray 04/05/16 00:00 IMPRESSION: No evidence of metallic foreign body within the orbits. D/ / 04/05/2016 17:13:07 Alejandro Costello MD / georgie Interpreting Provider: Alejandro Costello MD Lumbar Spine MRI 04/05/16 15:43 IMPRESSION: 1. Left central to left subarticular disc extrusion at L2-L3 measures up to 6 mm in AP diameter and extends 2.1 cm below the level of the disc space, nearly to the L3-L4 level. There is associated severe spinal canal stenosis and compression of the descending left L3 nerve root. 2. Degenerative changes at the remaining lumbar levels, superimposed on a congenitally narrow canal. There is severe spinal canal stenosis at L3-L4 and moderate spinal canal stenosis at L4-L5. 3. Multilevel neural foraminal narrowing, including severe left neural foraminal stenosis at L5-S1. D/ / 04/05/2016 17:50:59 Harjit Riddle MD / earno Interpreting Provider: Harjit Riddle MD Thoracic Spine MRI 04/05/16 16:05 IMPRESSION: Multilevel degenerative changes of the thoracic spine, including 2 mm central disc protrusion at T7-T8, which abuts and deforms the ventral aspect of the spinal cord. No cord signal abnormality. No spinal canal stenosis. D/ / 04/05/2016 17:31:28 Harjit Riddle MD / haryr Interpreting Provider: Harjit Riddle MD Chest X-Ray 04/06/16 00:00 IMPRESSION: No acute pulmonary process. D/ / Loi Ortiz MD / Loi Ortiz MD Interpreting Provider: Loi Ortiz MD - Imaging EKG: image reviewed (65bpm SR) Anesthesia Exam Vital Signs Temp Pulse Resp BP Pulse Ox 04/09/16 11:38 98.4 F 67 20 151/82 97 04/09/16 06:25 98.8 F 75 20 157/92 97 04/09/16 04:00 98.4 F 75 16 157/84 95 04/09/16 00:00 98.7 F 66 16 154/67 96 04/08/16 20:27 97.9 F 73 15 157/79 96 04/08/16 15:09 97.5 F L 63 16 139/52 97 Intake and Output 04/08/16 04/09/16 04/09/16 23:59 07:59 15:59 Intake Total 1290 / 1290 300 / 300 Balance 1290 / 1290 300 / 300 Intake: Oral 1290 / 1290 300 / 300 Other: Meal Dinner Percent of Meal Consumed 100% # Voids 1 1 Height: 5'11" Weight: 210# NPO (# of Hours): MNoc - HEENT Pupil (Motor): Pupils equal, EOMI Mallampati: III Teeth: Edentulous Oral Opening: Greater than 3 - 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 Jen Krishna MD
--- NOTE | 2016-04-09 16:34 | Internal Med Progress Note ---
Date of Encounter: 04/09/16 Time of Encounter: 09:00 - Assessment and plan (1) Spinal stenosis Current Visit: Yes Status: Acute Assessment and plan: We will give pain medication. Spinal surgery is on case and plan for surgery. Qualifiers: Spinal region: lumbar Qualified Code(s): M48.06 - Spinal stenosis, lumbar region (2) Radiculopathy of lumbar region Current Visit: Yes Status: Chronic Assessment and plan: Caused by spinal stenosis. Plan for surgery. 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 Mild elevated bilirubin (4) Lung fibrosis Current Visit: Yes Status: Chronic Assessment and plan: Patient has history of abestosis exposure, need home oxygen. Chest x-ray shows no acute changes. Continue oxygen therapy. Closely monitor perioperatively. (5) DVT prophylaxis Current Visit: Yes Status: Acute Assessment and plan: Heparin and EPCD - Time Spent With Patient Greater than 35 minutes - Subjective Interval history: Patient is a 75-year-old male admitted for low back pain radiated to left leg, L -spine stenosis. Past medical history is significant for hyperlipidemia and chronic lung disease. Patient was seen and examined. He has no shortness of breath, no fever, vitals are stable. Complaint of low back pain and left leg pain, on pain med. Denies urinary or fecal incontinence. Spinal surgery Dr. Gandhi is on case. Plan for surgery today. - Constitutional Vitals: Temp Pulse Resp BP Pulse Ox 98.8 F 76 18 158/80 97 04/09/16 15:02 04/09/16 15:02 04/09/16 15:02 04/09/16 15:02 04/09/16 15:02 General appearance: Present: cooperative, mild distress, A&O X 3, pleasant, answers questions appropriately - Head Head exam: Present: atraumatic, normocephalic - Eye Eye exam: Present: PERRL, conjuntiva pink, sclera anicteric Pupils: Present: PERRL - Neck Neck exam general surgery: Present: supple, trachea midline. Absent: lymphadenopathy - Respiratory Respiratory exam: Present: CTAB. Absent: accessory muscle use, rales, rhonchi, wheezes - Cardiovascular Cardiovascular exam: Present: RRR, +S1, +S2. Absent: diastolic murmur, gallop, rubs, systolic murmur - GI/Abdominal GI/Abdominal exam: Present: normal bowel sounds, soft, no peritoneal signs. Absent: distended, tenderness - Extremities Exam Extremities exam: Present: warm, radial pulses palpable and symetrical. Absent : calf tenderness, cyanotic, pedal edema - Neurological Exam Neurological exam: Present: CN II-XII intact, oriented X3, no focal deficits. Absent: pronater drift, facial droop, speech deficit - Skin Skin exam: Present: dry, intact Internal Medicine: Result - Labs CBC & Chem 7: 04/09/16 05:15 04/09/16 05:15 Labs: Short CBC 04/09/16 Range/Units 05:15 WBC 7.3 (4.3-11.1) K/mcL Hgb 15.4 D (12.9-16.9) g/dL Hct 45.4 (37.5-50.1) % Plt Count 159 (140-400) K/mcL Neutrophils # 5.0 (1.6-8.9) K/mcL BMP 04/09/16 05:15 Sodium 139 Potassium 4.3 Chloride 108 Carbon Dioxide 24 BUN 19 Creatinine 1.20 Glucose 111 H Calcium 8.8 - ABG Interpretation ABG results: PT/INR, D-dimer PT 11.8 Seconds (9.4-12.1) 04/06/16 03:47 - VTE Documentation of Mechanical Device: Intermittent pneumatic compression device Consult Discharge Plan - Plan Referrals: Colten Costello DO [Primary Care Provider] -
[2016-04-09] MEDS ORDERED: *HR* FentaNYL (PF) 100 MCG/2 ML VIAL ONE (17:44)
[2016-04-09] MEDS ORDERED: *HR* Midazolam HCl 2 MG/2 ML VIAL ONE (17:44)
[2016-04-09] MEDS ORDERED: *HR* Propofol 200 MG/20 ML VIAL IVP ONE (17:44)
[2016-04-09] MEDS ORDERED: Dexamethasone 4 MG/ML VIAL ONE (17:47)
[2016-04-09] MEDS ORDERED: Ondansetron 4 MG/2 ML VIAL ONE (17:47)
[2016-04-09] MEDS ORDERED: *HR* Succinylcholine 200 MG/10 ML VIAL IVP ONE (17:47)
[2016-04-09] MEDS ORDERED: Lidocaine -MPF 2% 2 ML VIAL ONE (17:47)
[2016-04-09] MEDS ORDERED: Gabapentin 300 MG CAPSULE ONE (17:51)
[2016-04-09] MEDS ORDERED: Acetaminophen IV 1,000 MG/100 ML INFUS..BTL ONE (17:51)
[2016-04-09] MEDS ORDERED: *HR* Morphine 10 MG/ML VIAL ONE (20:13)
--- NOTE | 2016-04-09 20:34 | Orthopedic Operative Note ---
Date of procedure: 04/09/16 Pre-op diagnosis: Lumbar stenosis, lumbar radiculopathy Post-op diagnosis: same Operation/Findings: Laminectomy L2-L5- The patient was brought to the operative theater where he underwent general endotracheal anesthesia. He was given antibiotics prior to the start of the procedure. Compression boots and stockings were used for deep vein thrombosis prophylaxis. The patient was placed prone on a Clive table. The back was prepped and draped in the usual sterile fashion. An incision was marked and centered over the L2-L5 interspaces in the midline. We used Bovie cautery to make an incision and then this incision was deepened through the lumbar fascia. Bovie cautery and Hamilton elevators were used to reflect the paraspinal musculature to the lateral extent of the L2-3, L3-4, and L4-5 facet joints bilaterally. [place]anna clamps were placed over the spinous processes of L4 and L5 and an intraoperative lateral fluorograph was obtained. A discusssion was held between the radiologist and surgeon who both confirmed we were at the correct operative level. We then removed the supraspinous and interspinous ligaments between L4 and L5 and subsequently removed the ligamentum flavum from its origin on the distal undersurface of the L4 lamina. The ligamentum flavum was noted to be quite hypertrophied as well as the facets were hypertrophied. This required performing a laminectomy of L4 with partial medial facetectomies including undercutting of the L4-5 facets to decompress the lateral recesses. We moved proximally to the L3-4 levels and L2-3 levels. We removed all intervening ligamentum flavum as well as perform a laminectomy of L3 and partial laminectomy of L2. Again we decompressed the lateral recesses at L3-4 and L2-3 by undercutting the facets and performing bilateral partial medial facetectomies. After the decompression was complete we checked the foramen and the traversing nerve roots at L2-3, L3-4, and L4-5 and they were found to be free and patent. We copiously irrigated the wound and then closed the wound in layers with 1 Vicryl for the fascia, 2-0 Vicryl for the subcutaneous tissue, and Dermabond was used for skin closure. Sterile dressings were placed over the wound, the patient was turned supine in a hospital bed, and was extubated in the operative theater. All sponge needles and instrument counts were correct at the end of the procedure. The patient tolerated the procedure well without complications. Anesthesia: CARY Surgeon: Earle Lai Jr Estimated blood loss (cc): 100 Condition: stable Disposition: PACU
[2016-04-09] MEDS ORDERED: Ondansetron 4 MG/2 ML VIAL IVP PRN ×2 (20:36→21:42)
[2016-04-09] MEDS ORDERED: Sennosides 8.6 MG TABLET PO PRN (20:36)
[2016-04-09] MEDS ORDERED: Naloxone 0.4 MG/ML INJ IVP PRN ×2 (20:36→21:42)
--- NOTE | 2016-04-09 21:23 | Anesthesia Evaluation Post Op ---
Date of Encounter: 04/09/16 Time of Encounter: 21:22 - Vital Signs Vital Signs: Vital Signs/O2 Sat, Most Current Temp Pulse Resp BP Pulse Ox 97.6 F 67 18 127/68 94 L 04/09/16 20:52 04/09/16 21:12 04/09/16 21:12 04/09/16 21:12 04/09/16 21:12 - Lungs Lungs: Clear Ascult./Percussion - Airway Airway: Non-obstructed - Cardiovascular Regular Rate - Mental Status Mental Status: Asleep with brisk response to light stimulation - Pain Pain Scale: 4 Pain Scale used: Numeric (1 - 10) - Nausea Vomiting Nausea Vomiting: Not Present - Hydration Hydration: NPO, Has not voided - Discharge PostOp Status: Transfer Patient to floor
[2016-04-09] MEDS ORDERED: Ketorolac 30 MG/ML VIAL IVP PRN (21:42)
[2016-04-09] MEDS ORDERED: traMADol 50 MG TABLET PO PRN (21:42)
[2016-04-09] MEDS: ceFAZolin 2,000 MG in D5% in Water 100 ML IVPB SCH (23:43)
[2016-04-10] MEDS: *HR* HYDROmorphone (PF) 1 MG/ML SYRINGE IVP PRN (05:35)
[2016-04-10] MEDS ORDERED: *HR* Heparin 5,000 UNIT/ML VIAL SQ SCH (06:00)
[2016-04-10] MEDS: ceFAZolin 2,000 MG in D5% in Water 100 ML IVPB SCH (08:05)
[2016-04-10] MEDS ORDERED: Cyanocobalamin (B-12) 1,000 MCG TABLET PO SCH (09:00)
[2016-04-10] MEDS ORDERED: Ascorbic Acid 500 MG TABLET PO SCH (09:00)
[2016-04-10] MEDS ORDERED: Cholecalciferol (D-3) 1,000 UNIT TABLET PO SCH (09:00)
[2016-04-10] MEDS ORDERED: Loratadine 10 MG TABLET PO SCH (09:00)
[2016-04-10] MEDS ORDERED: Pantoprazole 40 MG VIAL IVP SCH (09:00)
--- NOTE | 2016-04-10 15:28 | Spine Progress Note ---
Date of Encounter: 04/10/16 Time of Encounter: 15:26 - Assessment and Plan (1) Lumbar stenosis with neurogenic claudication Current Visit: Yes Status: Chronic (2) Radiculopathy of lumbar region Current Visit: Yes Status: Chronic Subjective Principal diagnosis: lumbar radiculopathy, s/p laminectomy Interval history: The patient is without complaints. Much improved compared to his preoperative state. Has some incisional pain only. Afebrile vital signs are stable. Dressing is clean dry and intact. Neurovascularly intact with regard to bilateral lower extremities. Fires all upper and lower extremity motor groups. Assessment :stable. Plan mobilize ,continue analgesics, discharge planning. Objective Vital signs: Vital Signs Temp Pulse Resp BP Pulse Ox 04/10/16 11:08 97.6 F 97 16 145/80 95 04/10/16 06:31 98.5 F 71 18 116/65 95 04/10/16 03:31 98.1 F 62 14 113/68 95 04/10/16 01:00 95 04/10/16 00:30 98.4 F 95 14 110/68 95 04/09/16 23:30 98.4 F 68 14 138/73 95 04/09/16 22:15 98.8 F 76 14 151/83 95 04/09/16 21:32 72 16 144/80 96 04/09/16 21:22 97.7 F 77 16 141/78 95 04/09/16 21:12 67 18 127/68 94 L 04/09/16 21:02 67 18 121/63 96 04/09/16 21:00 98.8 F 77 14 143/86 95 04/09/16 20:52 97.6 F 80 18 119/71 93 L Intake and Output 04/09/16 04/10/16 04/10/16 23:59 07:59 15:59 Intake Total 100 / 100 340 / 340 Output Total 100 / 100 Balance -100 / -100 100 / 100 340 / 340 Intake: IV Fluids 100 / 100 100 / 100 Ancef 2,000 MG In 100 / 100 100 / 100 Dextrose 5% 100 ML @ 200 mls/hr IVPB Q8HR JESSICA Rx#: [id number] Oral 240 / 240 Output: Estimated Blood Loss 100 / 100 Other: Meal Lunch Percent of Meal Consumed 100% # Voids 2 1 - Labs CBC & BMP: 04/09/16 05:15 04/09/16 05:15 Labs: Abnormal lab results MPV 9.2 fL (9.4-12.4) L 04/09/16 05:15 Est GFR (Non-Af Amer) 59 (> 60) L 04/09/16 05:15 Glucose 111 mg/dL (70-99) H 04/09/16 05:15 Total Bilirubin 1.8 mg/dL (0.2-1.2) H 04/05/16 15:56 Indirect Bilirubin 1.3 mg/dL (0.0-1.2) H 04/05/16 15:56 Globulin 3.7 g/dL (2.4-3.5) H 04/05/16 15:56 Consult Discharge Plan - Plan Referrals: Connie Hurst PAC [Physician Waiter/Waitress Cafeteria] - 04/24/16 8:40 am Edson Quinn DO [Partnered Physician] - 04/23/16 8:10 am Savanna Bhakta MD [Partnered Physician] - 04/30/16 8:30 am Corby Rowe MD [Partnered Physician] - 04/25/16 3:15 pm Colten Costello DO [Primary Care Provider] - 06/27/16 2:45 pm
--- NOTE | 2016-04-10 15:29 | Discharge Summary ---
Date of Encounter: 04/10/16 Time of Encounter: 13:00 - Discharge Diagnosis (1) Spinal stenosis Priority: Primary Status: Acute Qualifiers: Spinal region: lumbar Qualified Code(s): M48.06 - Spinal stenosis, lumbar region (2) Radiculopathy of lumbar region Priority: Primary Status: Chronic (3) Gilbert's syndrome Priority: Secondary Status: Chronic (4) Lung fibrosis Priority: Secondary Status: Chronic (5) DVT prophylaxis Priority: Secondary Status: Acute - Discharge Medications Home Medications: RX: Ascorbate Calcium [Vitamin C] 500 mg PO DAILY 04/05/16 [History] RX: Atorvastatin [Lipitor] 10 mg PO HS 04/05/16 [History] RX: Cetirizine HCl [All Day Allergy] 10 mg PO DAILY 04/05/16 [History] RX: Cholecalciferol (D-3) [Vitamin D] 5,000 unit PO DAILY 04/05/16 [History] RX: Cyanocobalamin (Vitamin B-12) [Vitamin B12] 1,000 mcg PO DAILY 04/05/16 [ History] RX: Burney-3S/Dha/Epa/Fish Oil [Fish Oil 1,200 mg Softgel] 1 each PO DAILY [History] RX: Polyethylene Glycol 3350 [MiraLAX] 17 gm PO DAILY 04/05/16 [History] RX: Tramadol HCl [Ultram] 50 mg PO TID PRN 04/05/16 [History] Allergies/Adverse Reactions: Allergies No Known Allergies Allergy (Verified 03/27/16 11:29) Date of admission: 04/09/16 15:00 Primary care physician: Colten Costello DO Consults: 04/10/16 10:33 Consult to Solid Waste Facility Operator [CONS] Routine Reason for SW Consult: Therapy Recommending Home Health 04/10/16 15:24 Consult to Physician [CONS] Routine Consulting Provider: Earle Lai Jr Reason for Consult: con Call Completed: Yes Discharging clinician: Camelia Christianson Anticipated date of discharge: 04/10/16 - Patient Status Disposition: Home Health Service Condition: Good - Discharge Instructions Follow Up With: Connie Hurst PAC [Physician Site Inspector] - 04/24/16 8:40 am Edson Quinn DO [Partnered Physician] - 04/23/16 8:10 am Savanna Bhakta MD [Partnered Physician] - 04/30/16 8:30 am Corby Rowe MD [Partnered Physician] - 04/25/16 3:15 pm Colten Costelol DO [Primary Care Provider] - 06/27/16 2:45 pm - Diet and Activity Activity: as per physical therapy Diet: regular diet Interval History: Mr. Cespedes is a 75 year old male that presented to the ED for LBP for 1.5 weeks with radiating pain through low back, abdomen, L groin, and down his L leg. Patient notes history of "slipped disc" in 1979 that involved treatment with traction and a 1 week hospital stay in [place]. Since then he states his back may get irritated from time to time, but does not inhibit his daily activities and nothing comparable to pain now. Patient states at its worst, pain is a 10/10 in severity Patient states approx 10 days ago he was throwing a bucket of lloyd into the garden and felt his give out. Since this time patient states he has had sharp shooting pain in his back to his left ankle. Patient notes the pain is so severe it is affecting his ability to walk, so he has been using a walker recently, however, despite the use of the walker he states that he fell yesterday when his L leg gave out on him. Patient notes numbness in the left leg compared to the right and that the leg is painful to touch, worse over the tibia. Patient also notes recent elevated BP since the start of the back and leg pain. Patient denies any syncope, dizziness, chest pain, abdominal pain , or swelling. Hospital course: Mr. Cespedes is a 75 year old male admitted for spinal stenosis and lumbar radiculopathy. orthopedic coonsult is on case and saw patient. Patient has surgery. After surgery, patient did recover well. Orthopedic consult recheck the patient and cleared patient to discharge home. I saw and examined the patient today. He is awake alert, pain is much less. Can walk without assistance. No fever, vitals are stable, minimal pain. Patient with discharge home with home health and home physical therapy. Follow up with orthopedic as outpatient. - Time Spent with Patient Total time spent providing and/or coordinating discharge services: 40 minutes Greater than 30 minutes - Constitutional Vitals: Temp Pulse Resp BP Pulse Ox 97.6 F 97 16 145/80 95 04/10/16 11:08 04/10/16 11:08 04/10/16 11:08 04/10/16 11:08 04/10/16 11:08 General appearance: Present: cooperative, mild distress, A&O X 3, pleasant, answers questions appropriately - Head Head exam: Present: atraumatic, normocephalic - Eye Eye exam: Present: PERRL, conjuntiva pink, sclera anicteric Pupils: Present: PERRL - Neck Neck exam general surgery: Present: supple, trachea midline. Absent: lymphadenopathy - Respiratory Respiratory exam: Present: CTAB. Absent: accessory muscle use, rales, rhonchi, wheezes - Cardiovascular Cardiovascular exam: Present: RRR, +S1, +S2. Absent: diastolic murmur, gallop, rubs, systolic murmur - GI/Abdominal GI/Abdominal exam: Present: normal bowel sounds, soft, no peritoneal signs. Absent: distended, tenderness - Extremities Exam Extremities exam: Present: warm, radial pulses palpable and symetrical. Absent : calf tenderness, cyanotic, pedal edema - Neurological Exam Neurological exam: Present: CN II-XII intact, oriented X3, no focal deficits. Absent: pronater drift, facial droop, speech deficit - Skin Skin exam: Present: dry, intact - VTE Documentation of Mechanical Device: Intermittent pneumatic compression device
[2016-04-10 15:35] VITALS: BP 166/71
--- NOTE | 2016-04-10 15:38 | Physician Discharge Referral ---
Home Health/Hosp Referral Info Transfer to: Home Health Provider in Charge Post Discharge: PCP - Diagnosis (1) Spinal stenosis Status: Acute (2) Radiculopathy of lumbar region Status: Chronic (3) Gilbert's syndrome Status: Chronic (4) Lung fibrosis Status: Chronic (5) DVT prophylaxis Status: Acute - Respiratory Orders Smoking Cessation: Smoking cessation has been advised. For more information, call the [place] Tobacco Quit Line at 7-624-PWER-NOW. - Diet/Nutrition Diet/Nutrition Orders: Regular - Activity Activity Orders: Ambulate - Services Needed Following services are medically necessary services: Nursing, Home Health Aide, Physical Therapy, Occupational Therapy - Transfer Medications Home Medications: Ascorbate Calcium [Vitamin C] 500 mg PO DAILY 04/05/16 [History] Atorvastatin [Lipitor] 10 mg PO HS 04/05/16 [History] Cetirizine HCl [All Day Allergy] 10 mg PO DAILY 04/05/16 [History] Cholecalciferol (D-3) [Vitamin D] 5,000 unit PO DAILY 04/05/16 [History] Cyanocobalamin (Vitamin B-12) [Vitamin B12] 1,000 mcg PO DAILY 04/05/16 [History ] [place]uney-3S/Dha/Epa/Fish Oil [Fish Oil 1,200 mg Softgel] 1 each PO DAILY 04/05/16 [ History] Polyethylene Glycol 3350 [MiraLAX] 17 gm PO DAILY 04/05/16 [History] Tramadol HCl [Ultram] 50 mg PO TID PRN 04/05/16 [History] Allergies/Adverse Reactions: Allergies No Known Allergies Allergy (Verified 03/27/16 11:29) Certification: Further, I certify that my clinical findings support that this patient is homebound (i.e. absences from home require considerable and taxing effort and are for medical reasons or hinduism services or infrequently or short duration when for other reasons) because: Homebound Reason: Patient requires assistance of a person or device to safely leave home Attestation: My signature below is to certify that this patient is under my care and that I, or nurse practitioner, or a physician's head start assistant teacher working with me, has a face-to -face encounter with this patient.
== END 2016-04-10 16:10 | disposition home health service (06) | DRG 518 ==
LOC: EMEROO 14:58 → 3NENU 14:58
PROVIDERS: ADMIT Internal Medicine; ATTEND Internal Medicine